=== PATIENT | female | born 1985 | race Caucasian/White ===

== ENCOUNTER → 2023-08-30 | Outpatient (CLI) | payer OTHER ==
[2023-08-30 12:46] LABS: BASO # 0.02 K/mm3 (0.02-0.10); EOS # 0.17 K/mm3 (0.04-0.40); EOS % 1.8 % (1.0-5.0); HEMATOCRIT 36.4 % (37.0-47.0); HEMOGLOBIN 11.3 g/dL (12.5-16.0); LYMPH# 1.54 K/mm3 (1.50-4.00); MEAN CELL VOLUME 67 fl (78-100); MEAN CORPUSCULAR HEMOGLOBIN 21 pg (27-31); MEAN CORPUSCULAR HGB CONC 31 g/dL (33-37); MEAN PLATELET VOLUME 10.8 fl (7.4-10.4); NEU # 7.09 K/mm3 (1.40-6.50); RED BLOOD COUNT 5.46 M/mm3 (4.10-5.30); RED CELL DISTRIBUTION WIDTH 15.2 % (11.5-14.5); WHITE BLOOD COUNT 9.4 K/mm3 (4.8-10.8)
[2023-08-30 12:56] LABS: ALBUMIN 4.5 g/dL (3.5-5.0)
[2023-08-30 12:59] LABS: TOTAL PROTEIN 7.7 g/dL (6.4-8.3)
[2023-08-30 13:01] LABS: TOTAL BILIRUBIN 1.5 mg/dL (0.2-1.2)
[2023-08-30 13:18] LABS: PLATELET COUNT 190 K/mm3 (130-400)
[2023-08-30 22:19] LABS: FOLLICLE STIMULATING HORMONE 5.5 mIU/mL (()); LUTENIZING HORMONE 8.7 mIU/mL (()); PROGESTERONE 4.9 ng/mL (())
== END ==
LOC: LAB 12:11
PROVIDERS: Family Medicine
DX: E78.5 Hyperlipidemia, unspecified (principal); I10 Essential (primary) hypertension; N91.1 Secondary amenorrhea; E55.9 Vitamin D deficiency, unspecified; E03.9 Hypothyroidism, unspecified; R73.9 Hyperglycemia, unspecified